=== PATIENT | male | born 1990 | race Caucasian/White ===

== ENCOUNTER 2019-04-10 12:59 | Emergency (ER) | payer OTHER ==
[~2019-04-10] VITALS: Ht 177.8 cm; Wt 79.4 kg
[2019-04-10 13:03] VITALS: BP 112/90
--- NOTE | 2019-04-10 13:03 | NUR ---
PT ARRVIED TO ED C/O COUGH X 3 WEEKS. NO PIAN JUST DISCOMFORT ON CHEST D/T COUGHING. LUNG SOUNDS CLEAR THROUGHOUT. COUGH IS PORDUCTIVE AND MOIST. VSS. NO RESP DISTRESS NOTED. PT HAS NASAL CONGESTION. DENIES ANY MCCALL,FEVER,N,V,D. ALLERGIES: PETS DENIES ANY PMH.
[2019-04-10] MEDS ORDERED: ALBUTEROL SULFATE/IPRATROPIU 3 ML SOL IH ONE (14:15)
[2019-04-10] MEDS ORDERED: predniSONE 20 MG TAB PO ONE (14:15)
[2019-04-10] MEDS ORDERED: predniSONE 10 MG TAB ONE (14:18)
--- NOTE | 2019-04-10 14:28 | NUR ---
PT TO XRAY VIA WHEELCHAIR.
--- NOTE | 2019-04-10 14:30 | NUR ---
OUT OF ROOM IN RADILOGY BUS ESCORT TO ATTEMPT HHN THERAPY AT A LATER TIME
--- NOTE | 2019-04-10 14:56 | NUR ---
RT AT BEDSIDE.
[2019-04-10 15:35] VITALS: BP 139/71
--- NOTE | 2019-04-10 15:37 | NUR ---
Patient discharged with v/s stable. Written and verbal after care instructions given and explained. Patient alert, oriented and verbalized understanding of instructions. Ambulatory with steady gait. All questions addressed prior to discharge. ID band removed. Patient advised to follow up with PMD. Rx of CLARTIN AND PROMETHAZINE given. Patient educated on indication of medication including possible reaction and side effects. Opportunity to ask questions provided and answered.
== END 2019-04-10 15:37 | disposition home or self-care (01) ==
LOC: MED 12:59
DX: J20.9 Acute bronchitis, unspecified (principal); F17.210 Nicotine dependence, cigarettes, uncomplicated; F12.90 Cannabis use, unspecified, uncomplicated
CPT/HCPCS: 71046; 94640; 99283; J7512; J7620

== ENCOUNTER 2020-09-16 10:34 | Emergency (ER) | payer SELFPAY ==
[~2020-09-16] VITALS: Ht 180.3 cm; Wt 76.2 kg
[2020-09-16 10:38] VITALS: BP 160/84
--- NOTE | 2020-09-16 10:44 | NUR ---
AMBULATED TO BED 9
--- NOTE | 2020-09-16 11:00 | NUR ---
30 YEAR OLD MALE COMPLAINS OF RIGHT FOOT PAIN X YESTERDAY. PT KICKED POLE AND FOOT PAIN STARTED AFTER. PT AOX4, BREATHING EVEN AND UNLABORED, SKIN WARM AND DRY. BED IN LOWEST POSITION, LOCKED, BED RAIL UPX1. PMH - DENIES ALLERGIES - POLLEN, CATS
[2020-09-16 11:30] VITALS: BP 160/84
--- NOTE | 2020-09-16 11:30 | NUR ---
Patient discharged with v/s stable. Written and verbal after care instructions about toe fracture given and explained. Patient verbalized understanding. Ambulatory with steady gait. All questions addressed prior to discharge. Advised to follow up with PMD.
--- NOTE | 2020-09-16 11:30 | NUR ---
PT PLACED IN ORTHO SHOE, CMS WNL BEFORE AND AFTER. PT ALSO GIVEN CRUTCHES. PT STATES THAT THEY ALREADY KNOW HOW TO USE CRUTCHES AND SHOWED PROPER DEMENSTRATION ON HOW TO USE CRUTCHES. PT HAD NO FURTHER QUESTIONS, ERMD NOTIFIED.
== END 2020-09-16 11:30 | disposition home or self-care (01) ==
LOC: MED 10:34
DX: S92.501A Displaced unspecified fracture of right lesser toe(s), initial encounter for closed fracture (principal); W22.8XXA Striking against or struck by other objects, initial encounter; Y93.89 Activity, other specified; Y92.89 Other specified places as the place of occurrence of the external cause; Y99.8 Other external cause status
CPT/HCPCS: 73610; 73630; 99284